=== PATIENT | male | born 2000 | race Caucasian/White ===

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

== ENCOUNTER → 2020-01-02 14:26 | Outpatient (CLI) | payer OTHER, SELFPAY ==
--- NOTE | 2020-01-02 14:27 | CT_ITS ---
PROCEDURE: CT ABDOMEN PELVIS WO CON CLINICAL INDICATION: splenomegaly Follow-up splenomegaly and lymphadenopathy COMPARISON: CT CT ABDOMEN PELVIS W CON from 06/25/2019 TECHNIQUE: Axial images obtained with sagittal and coronal reformats. All CT scans at the facility use one or more dose reduction, viz: automated exposure control, ma/kV adjustment per patient size (including targeted exams where dose is matched to indication, i.e. head), or iterative reconstruction technique. FINDINGS: LOWER THORAX: Calcified granulomas in the right perihilar region with a large calcified lymph node in the right paraesophageal region medial to the bronchus intermedius. ABDOMEN & PELVIS: The liver, gallbladder, adrenal glands, pancreas, and kidneys have an unremarkable appearance. There is mild splenomegaly with the spleen measuring 14 cm in AP dimension and 14 cm cephalad caudad not significantly changed. No definite splenic lesions identified on this nonenhanced exam. No intestinal obstruction or free air. There are few small mesenteric and ileocolic lymph nodes unremarkable appendix. No pelvic mass or abnormal fluid collection. No acute bony findings. IMPRESSION: Overall no significant change in the mild splenomegaly with scattered small mesenteric lymph nodes. No acute abdominal or pelvic findings. Dictated by: Wojciech Reddy MD 01/03/2020 06:34 Wojciech Reddy MD in [facility] 01/03/2020 06:34
== END ==
PROVIDERS: PCP Emergency Medicine; Visit Provider Emergency Medicine
DX: R16.1 Splenomegaly, not elsewhere classified (principal)
CPT/HCPCS: 74176